=== PATIENT | female | born 2000 | race Caucasian/White ===

== ENCOUNTER 2023-02-15 22:40 | Emergency (ER) | payer OTHER ==
[2023-02-16] LABS: Bilirubin Negative (Negative); Blood, Urine Negative (Negative); CAUTI Indications for Culture Alt mental st,lethar; Clarity Turbid (Clear); Glucose, Urine (Dipstick) Normal (Negative); Ketone, Urine Negative (Negative); Leukocyte 250 Leu/uL (Negative); Nitrite Negative (Negative); Protein, Urine (Dipstick) Negative (Neg-Trace); RBC/HPF 0-3 HPF (0-3); Specific Gravity, Urine 1.022 (1.002-1.036); Squamous Epithelial 0-3 HPF (0-3); Urobilinogen Normal mg/dL (Less than 2)
[2023-02-16 00:01] LABS: Amphetamine Not Detected (NotDetected); Barbiturates Screen Not Detected (NotDetected); Benzodiazepine Screen Not Detected (NotDetected); Cocaine Metabolite Screen Not Detected (NotDetected); Methadone Not Detected (NotDetected); Methamphetamine Not Detected (NotDetected); Opiate Screen Not Detected (NotDetected); Oxycodone Screen Not Detected (NotDetected); Phencyclidine (PCP) Not Detected (NotDetected); THC/Cannabinoid Screen Not Detected (NotDetected); Tricyclic Screen Not Detected (NotDetected)
[2023-02-16] MEDS ORDERED: hydrOXYzine Pamoate 25 mg Capsule ONE (00:20)
[2023-02-16 00:26] LABS: Bacteria/HPF 2+ HPF (None Seen)
[2023-02-16 00:27] LABS: Urine Culture Reflex No No
[2023-02-16] MEDS ORDERED: Topiramate 25 MG TAB PO SCH ×2 (00:30→21:00)
[2023-02-16] MEDS ORDERED: levETIRAcetam 500 MG TAB PO SCH ×2 (00:30→21:00)
[2023-02-16] MEDS ORDERED: busPIRone HCl 10 MG TAB PO SCH (00:30)
[2023-02-16] MEDS ORDERED: Aripiprazole 10 MG TAB PO SCH ×2 (00:30→21:00)
[2023-02-16 00:38] LABS: #Eosinphils 0.1 thou/uL (0.0-0.7); #Monocytes 0.6 thou/uL (0.11-0.59); #Neutrophils 5.2 thou/uL (1.40-6.50); %Basophils 0.4 % (0.0-1.0); %Eosinophils 1.5 % (0.0-10.0); %Lymphocytes 23.7 % (21.0-51.0); %Monocytes 7.6 % (0.0-10.0); %Neutrophils 66.4 % (42.0-75.0); Hemoglobin 15.5 g/dL (12.0-16.0); Mean Corpuscular HGB CONC 34.8 g/dL (32.0-36.0); Mean Corpuscular Hemoglobin 30.9 pg (27.0-31.0); Mean Corpuscular Volume 88.6 fl (78.0-98.0); Mean Platelet Volume 10.4 fL (7.4-10.4); Platelet Count 252 10x3/uL (130-400); RBC Distribution Width 12.7 % (11.5-14.5); Red Blood Cell (RBC) Count 5.02 mill/uL (4.20-5.40); White Blood Cell (WBC) Count 7.8 10x3/uL (4.8-10.8)
[2023-02-16 01:01] LABS: Acetaminophen Less than 10 mcg/mL (10.0-30.0); Alcohol Less than 10.0 mg/dL (Less than 10); Salicylate Less than 8.0 mg/dL (15.0-30.0)
[2023-02-16 01:06] LABS: ALT (SGPT) 13 U/L (8-55); AST (SGOT) 17 U/L (5-34); Albumin 4.4 g/dL (3.5-5.0); Alkaline Phosphatase 47 U/L (40-110); Anion Gap 16 mmol/L (10-20); BUN (Urea Nitrogen) 18 mg/dL (7.0-18.7); Bilirubin, Total 0.2 mg/dL (0.2-1.2); Calc. Creatinine Clearance 0 mL/min (70-130); Calcium 9.5 mg/dL (7.8-10.44); Carbon Dioxide 21 mmol/L (22-29); Chloride 108 mmol/L (98-107); Estimated GFR 102; Globulin 3.1 g/dL (2.4-3.5); Glucose 97 mg/dL (70-105); Potassium 4.4 mmol/L (3.5-5.1); Protein, Total 7.5 g/dL (6.0-8.3); Sodium 141 mmol/L (136-145)
[2023-02-16] MEDS ORDERED: lamoTRIgine 25 MG TAB PO SCH (09:00)
[2023-02-16] MEDS ORDERED: busPIRone HCl 5 MG TAB PO SCH ×2 (11:15→15:00)
[2023-02-16] MEDS ORDERED: hydrOXYzine Pamoate 25 mg Capsule PO SCH (21:00)
== END 2023-02-16 17:45 | disposition home or self-care (01) ==
LOC: ERS 22:40
DX: R45.851 Suicidal ideations (principal); F43.0 Acute stress reaction; F41.0 Panic disorder [episodic paroxysmal anxiety]
CPT/HCPCS: 36415; 80053; 80306; 80307; 81001; 84443; 85025; 93005; Q0177

== ENCOUNTER 2023-04-19 18:20 | Inpatient (IN) | payer OTHER ==
[2023-04-19 19:59] LABS: #Eosinphils 0.1 thou/uL (0.0-0.7); #Monocytes 0.6 thou/uL (0.11-0.59); #Neutrophils 5.3 thou/uL (1.40-6.50); %Basophils 0.4 % (0.0-1.0); %Eosinophils 1.4 % (0.0-10.0); %Lymphocytes 23.1 % (21.0-51.0); %Neutrophils 66.7 % (42.0-75.0); Hematocrit 40.5 % (36.0-47.0); Hemoglobin 13.7 g/dL (12.0-16.0); Mean Corpuscular HGB CONC 33.8 g/dL (32.0-36.0); Mean Corpuscular Hemoglobin 31.6 pg (27.0-31.0); Mean Corpuscular Volume 93.3 fl (78.0-98.0); Mean Platelet Volume 9.8 fL (7.4-10.4); Platelet Count 254 10x3/uL (130-400); RBC Distribution Width 11.9 % (11.5-14.5); Red Blood Cell (RBC) Count 4.34 mill/uL (4.20-5.40); White Blood Cell (WBC) Count 7.9 10x3/uL (4.8-10.8)
[2023-04-19 20:06] LABS: BHCG - Serum Negative (NEGATIVE); Pregs Control Background? CLEAR/WHITE (CLR/WHITE); Pregs Control Bar Appear? YES (CONTROL BAR)
[2023-04-19] MEDS ORDERED: levETIRAcetam 500 MG/5 ML VIAL ONE (20:18)
[2023-04-19 20:25] LABS: ALT (SGPT) 12 U/L (8-55); AST (SGOT) 15 U/L (5-34); Albumin 4.5 g/dL (3.5-5.0); Alkaline Phosphatase 49 U/L (40-110); Anion Gap 12 mmol/L (10-20); BUN (Urea Nitrogen) 11 mg/dL (7.0-18.7); Bilirubin, Total 0.5 mg/dL (0.2-1.2); Calc. Creatinine Clearance 0 mL/min (70-130); Calcium 9.4 mg/dL (7.8-10.44); Carbon Dioxide 24 mmol/L (22-29); Chloride 106 mmol/L (98-107); Estimated GFR 97; Globulin 2.9 g/dL (2.4-3.5); Glucose 83 mg/dL (70-105); Potassium 3.8 mmol/L (3.5-5.1); Protein, Total 7.4 g/dL (6.0-8.3); Sodium 138 mmol/L (136-145); Troponin I Less than 0.010 ng/mL (< 0.028)
[2023-04-19] MEDS ORDERED: Lorazepam 2 MG/ML VIAL SLOW IVP PRN (23:08)
[2023-04-19] MEDS ORDERED: Acetaminophen 325 MG TAB PO PRN (23:13)
[2023-04-19] MEDS ORDERED: Senokot S 8.6-50 MG TAB PO PRN (23:13)
[2023-04-19] MEDS ORDERED: Ondansetron ODT 4 MG TAB PO PRN (23:13)
[2023-04-19 23:33] VITALS: BMI 29.1
[2023-04-20 05:18] LABS: Anion Gap 10 mmol/L (10-20); BUN (Urea Nitrogen) 11 mg/dL (7.0-18.7); Calc. Creatinine Clearance 155 mL/min (70-130); Calcium 8.7 mg/dL (7.8-10.44); Carbon Dioxide 25 mmol/L (22-29); Chloride 106 mmol/L (98-107); Estimated GFR 107; Glucose 114 mg/dL (70-105); Magnesium 1.9 mg/dL (1.6-2.6); Potassium 3.4 mmol/L (3.5-5.1); Sodium 138 mmol/L (136-145)
[2023-04-20] MEDS ORDERED: Potassium Chloride 20 MEQ in Lactated Ringer's 1,000 ML IV SCH (09:00)
[2023-04-20] MEDS ORDERED: Famotidine 20 MG TAB PO SCH (09:00)
[2023-04-20] MEDS ORDERED: levETIRAcetam 500 MG TAB PO SCH (09:00)
[2023-04-20] MEDS ORDERED: Magnesium 2 GM/50 ML(in water) 2 GM in Premix Bag 1 BAG IVPB SCH (09:00)
[2023-04-20] MEDS ORDERED: busPIRone HCl 10 MG TAB PO SCH ×2 (09:00→15:00)
[2023-04-20] MEDS ORDERED: Magnevist 469MG/ML 20 ML VIAL ONE (10:01)
[2023-04-20] MEDS ORDERED: Potassium Chloride 20 MEQ TAB PO SCH (12:00)
[2023-04-20 12:20] VITALS: TEMP 97.1
[2023-04-20] MEDS ORDERED: Topiramate 25 MG TAB PO SCH (21:00)
[2023-04-20] MEDS ORDERED: QUEtiapine 25 MG TAB PO SCH (21:00)
[2023-04-21] MEDS ORDERED: lamoTRIgine 25 MG TAB PO SCH (09:00)
== END 2023-04-20 18:46 | disposition home or self-care (01) | DRG 880 ==
LOC: ERS 18:20 → IMCU/EMU 21:33
PROVIDERS: ADMIT Student in an Organized Health Care Education/Training Program; ATTEND Internal Medicine
DX: F44.5 Conversion disorder with seizures or convulsions (principal); F41.9 Anxiety disorder, unspecified; F39 Unspecified mood [affective] disorder; E87.6 Hypokalemia; E83.42 Hypomagnesemia; Z79.899 Other long term (current) drug therapy
CPT/HCPCS: 36415; 70450; 70553; 71045; 80048; 80053; 83605; 83735; 84146; 84484; 84703; 85025; 93005; 95712; 95819; 95957; 96365; A9579; J1953; J3475

== ENCOUNTER 2025-07-04 01:57 | Emergency (ER) | payer MEDICARE | END 2025-07-04 02:38 | disposition home or self-care (01) | LOC: ERS 01:57 | DX: L02.421 Furuncle of right axilla (principal) | CPT/HCPCS: 99282 ==